=== PATIENT | female | born 1970 | race Caucasian/White ===

== ENCOUNTER → 2017-08-24 | Outpatient (CLI) | payer MEDICARE ==
--- NOTE | 2017-08-25 08:50 | MRI ---
EXAM DESCRIPTION: Lumbar Spine w/o Contrast : Magnetic Resonance Imaging. CLINICAL HISTORY: RADICULOPATHY COMPARISON: None. TECHNIQUE: Multiplanar, multiple standard sequences, non contrast MRI, lumbar spine. FINDINGS: L5-S1: Minimal disc space loss. Disc desiccation. Anterior bulging. Moderate disc space loss. Posterior midline 5 mm disc bulge also bulging to the left of midline encroaching on the left subarticular recess and abutting the descending left S1 nerve. Bilateral Modic type II endplate reactive changes. Disc spur complex encroaching on the bilateral foramina with moderate to severe narrowing. Posterior elements unremarkable. Heterogeneous marrow signal. Bright will circumscribed T1 and T2 signal in the L5 vertebra and S1 sacral segment. L4-5: Disc desiccation posterior broad-based bulge. Posterior Modic type I endplate reactive changes. Well-circumscribed bright T1 and T2 signal in the L4 vertebral body. Minimal bilateral facet arthrosis and ligament hypertrophy abutting the thecal sac. AP canal diameter 10 mm. Mild narrowing of the bilateral foramina. L3-4: Normal signal in the disc. No bulging. Minimal hypertrophy of the bilateral flavum ligaments and mild right facet arthrosis. Mild canal narrowing. Bilateral foramina are patent. Well-circumscribed bright T1 and T2 signal in the L3 vertebral body. L2-3 and L1-2 and T12-L1 discs with normal signal. Minimal bulging of the T12-L1 disc. No canal or foraminal stenosis at these levels. Conus terminates at L1. Posterior elements unremarkable. Small regions of well-circumscribed bright T1 and T2 signal L1 and L2 vertebral bodies. No scoliosis. Decreased lordosis above L3. Paravertebral soft tissues unremarkable. Heterogeneous marrow signal in multiple vertebral bodies and the posterior elements. Well-circumscribed bright T1 and T2 signal in the T11 vertebral body. Vertebral bodies are not compressed at any level. IMPRESSION: 1. Heterogeneous marrow signal with multiple hemangiomas in the vertebral bodies as described. Also in the sacrum. 2. Posterior midline L5-S1 disc herniation with endplate spur and trace retrolisthesis in the midline into the left of midline encroaching on the subarticular left lateral recess and the descending left S1 nerve. Correlate for radiculopathy. Bilateral neuroforaminal stenosis. Correlate for bilateral L5 radiculopathy. 2. Bulging desiccated L4-5 disc with borderline mild central canal stenosis. Electronically signed by: Seamus Waddell MD 08/25/2017 8:48 AM CDT
== END ==
LOC: MRI 08:15
PROVIDERS: ATTEND Physical Medicine & Rehabilitation
DX: M51.16 Intervertebral disc disorders with radiculopathy, lumbar region (principal); M79.1 Myalgia

== ENCOUNTER → 2018-01-18 | Outpatient (CLI) | payer MEDICARE | LOC: LAB.O 15:44 | PROVIDERS: ATTEND Neurological Surgery | DX: N39.0 Urinary tract infection, site not specified (principal) ==

== ENCOUNTER 2018-04-20 12:05 | Emergency (ER) | payer MEDICARE ==
[2018-04-20] MEDS ORDERED: ACTIVATED CHARCOAL PELLETS 25 GM BTTL ONE (12:08)
[2018-04-20] MEDS ORDERED: SODIUM CHLORIDE 0.9% 1000ML 1,000 ML IVS ONE (12:10)
[2018-04-20] MEDS ORDERED: NOREPINEPHRINE BITARTRATE 4 MG/4 ML VIAL IVPB ONE (12:54)
[2018-04-20] MEDS ORDERED: DEXTROSE 5% 250ML 250 ML ONE (12:55)
[2018-04-20] MEDS ORDERED: NOREPINEPHRINE BITARTRATE 4 MG in DEXTROSE 5% 250ML 250 ML IVPB SCH (13:00)
[2018-04-20] MEDS ORDERED: NALOXONE HCL INJ 0.4 MG/ML VIAL ONE (18:27)
[2018-04-20] MEDS ORDERED: NALOXONE HCL INJ 0.4 MG/ML VIAL IV ONE (18:43)
[2018-04-20] MEDS ORDERED: DEX 5% W/NACL 0.45% 1000ML 1,000 ML IVS PRN (20:17)
--- NOTE | 2018-04-20 20:19 | ED.PDOC ---
History of Present Illness - General Source: patient, EMS notes reviewed, family Exam Limitations: clinical condition - History of Present Illness Initial Comments: the patient is a 47-year-old female brought in by EMS secondary to intentional overdose attempt primarily with Flexeril. An unknown amount of 10 mg tablets was ingested but patient estimates at least 20 tablets. She also reports that she took a couple of her Xanax and 10-20 Seroquel. She took these about an hour prior to arrival here. By time of her arrival she is already very drowsy and really only able to stand her simple questions reliably. She is able to protect her airway and she is arousable to voice. Blood pressures are borderline in the 90s over 60s initially but do drop down into the 70s over 50s after about an hour requiring pressors in spite of IV fluids. Poison control was contacted. The patient was dosed with activated charcoal. Timing/Duration: 1-3 hours Severity: severe Improving Factors: nothing Worsening Factors: nothing <Godfrey Silver L - Last Filed: 04/21/18 06:21> <Abel Howell - Last Filed: 04/21/18 10:12> - General Chief Complaint: Drug or Alcohol Abuse Stated Complaint: Overdose Time Seen by Provider: 04/20/18 12:10 - History of Present Illness Allergies/Adverse Reactions: Allergies Codeine Allergy (Verified 04/20/18 13:26) Penicillins Allergy (Verified 04/20/18 13:26) Home Medications: Ambulatory Orders Alprazolam [Xanax] 1 mg PO QID PRN 02/26/15 Levothyroxine Sodium [Synthroid] 150 mcg PO DAILY 02/26/15 Abilify 11/09/15 Ciprofloxacin [Cipro] 500 mg PO BID #20 tab 11/09/15 Meloxicam [Mobic] 15 mg PO DAILY #30 tab 11/09/15 Trazodone HCl 11/09/15 Wellbutrin XL 11/09/15 Review of Systems - Review of Systems Constitutional: States: malaise EENTM: States: blurred vision Respiratory: States: no symptoms reported Cardiology: States: no symptoms reported Gastrointestinal/Abdominal: States: no symptoms reported Genitourinary: States: no symptoms reported Musculoskeletal: States: no symptoms reported Skin: States: no symptoms reported Neurological: States: depressed Endocrine: States: no symptoms reported <Godfrey Silver - Last Filed: 04/21/18 06:21> Past Medical History (General) - Patient Medical History Hx Seizures: No Hx Stroke: No Hx Dementia: No Hx Asthma: No Hx of COPD: No Hx Cardiac Disorders: No Hx Congestive Heart Failure: No Hx Pacemaker: No Hx Hypertension: No Hx Thyroid Disease: Yes Hx Diabetes: No Hx Gastroesophageal Reflux: Yes Hx Renal Disease: No Hx Cancer: No Hx of HIV: No Hx Hepatitis C: No Hx MRSA: No - Vaccination History Hx Tetanus, Diphtheria Vaccination: No Hx Influenza Vaccination: No Hx Pneumococcal Vaccination: No - Social History Hx Tobacco Use: No Hx Chewing Tobacco Use: No Hx Alcohol Use: No Hx Substance Use: No Hx Substance Use Treatment: No Hx Depression: Yes Hx Physical Abuse: No Hx Emotional Abuse: No Hx Suspected Abuse: No - Female History Patient : No <Godfrey Silver - Last Filed: 04/21/18 06:21> Family Medical History - Family History Mother Family History: No Known Living Status: Still Living <Godfrey Silver - Last Filed: 04/21/18 06:21> Physical Exam - Physical Exam General Appearance: Lethargic - very drowsy but arousable to voice. Eye Exam: bilateral normal - extraocular movements are intact however the patient wants to keep her eyes closed Ears, Nose, Throat: hearing grossly normal, normal ENT inspection Neck: full range of motion, supple Respiratory: lungs clear, normal breath sounds, no respiratory distress, no accessory muscle use Cardiovascular/Chest: normal peripheral pulses, regular rate, rhythm - borderline tachycardia, no edema Peripheral Pulses: radial,right: 2+, radial,left: 2+, dorsalis pedis,right: 2+, dorsalis pedis,left: 2+ Gastrointestinal/Abdominal: non tender - obese, soft Rectal Exam: deferred Back Exam: normal inspection, no vertebral tenderness Extremity: normal range of motion, non-tender, normal inspection, no pedal edema, normal capillary refill Neurologic: [employer] II-XII nml as tested, no motor/sensory deficits, other - the patient is drowsy and lethargic. She knows what hospital she is at and she kn ows why she is here. She does recognize her family members. She is able to protect her airway. She moves all extremities well. Skin Exam: normal color Comments: Vital Signs - 24 hr 04/20/18 04/20/18 04/20/18 12:05 13:05 13:20 Temperature 98.6 F Pulse Rate [ 122 H 97 H 100 H Apical] Respiratory 16 12 12 Rate Blood Pressure 114/66 114/73 86/70 [Left Arm] O2 Sat by Pulse 94 L 93 L 90 L Oximetry 04/20/18 04/20/18 04/20/18 13:35 13:50 14:10 Temperature Pulse Rate [ 95 H 91 H 95 H Apical] Respiratory 12 14 14 Rate Blood Pressure 101/84 111/85 128/87 [Left Arm] O2 Sat by Pulse 95 94 L 95 Oximetry 04/20/18 04/20/18 04/20/18 14:35 14:50 15:00 Temperature Pulse Rate [ 97 H 83 96 H Apical] Respiratory 14 14 14 Rate Blood Pressure 117/88 106/84 112/82 [Left Arm] O2 Sat by Pulse 93 L 96 96 Oximetry 04/20/18 04/20/18 04/20/18 16:30 17:30 18:00 Temperature 97.8 F Pulse Rate [ 90 90 87 Apical] Respiratory 16 16 16 Rate Blood Pressure 106/85 114/92 101/86 [Left Arm] O2 Sat by Pulse 98 97 98 Oximetry 04/20/18 19:00 Temperature Pulse Rate [ 94 H Apical] Respiratory 12 Rate Blood Pressure 126/90 [Left Arm] O2 Sat by Pulse 97 Oximetry <Godfrey Silver L - Last Filed: 04/21/18 06:21> Progress - Progress Progress: 04/20/18 20:23 the patient is a 47-year-old female who presented after an intentional overdose on her Flexeril. The patient has received a couple of liters of IV fluids and is now being maintained on low-flow D5 half NS. The patient did have significant hypotension for proximally 2 hours and did require Levophed. She is now off the pressors. The patient has been arousable to voice the whole time and has been able to protect her airway. The patient is still significantly too drowsy to be evaluated by psychiatry. I have been instructed by the internal medicine floor that they will not take an overdose attempt patient due to staffing issues, thus the patient will end up remaining here in the emergency room likely another 12-18 hours until she is in a mental state to talk with psychiatry. Repeat electrolytes and EKGs are reassuring. Telemetry is reassuring. Cosme catheter is in place. Continue monitoring overnight. Total ER time is going to be significantly extended due to constraints above. Critical care time spent in management of this patient with intentional overdose, including significant hypotension is 65 minutes to this point. 04/20/18 20:27 04/21/18 06:21 the patient is still drowsy but she is making sense this morning. [facility] will be contacted and a little while for their evaluation. Dr. Howell to assume care this morning. - Results/Orders Results/Orders: EKG initial shows sinus tachycardia at 112 bpm. QRS durations 84 ms. QTc interval is 477. Poor R-wave progression. Normal axis. No definitive ST segment or T-wave changes consistent with acute ischemia. Repeat EKG 6 hours later shows normal sinus rhythm at 95 bpm. Normal axis. Continued poor R-wave progression. No ST segment or T-wave changes consistent with ischemia. Normal QT interval at 472. QRS complex is still 84 ms Laboratory Tests 04/20/18 04/20/18 04/20/18 12:32 12:32 12:32 WBC 6.7 RBC 4.07 L Hgb 11.1 L Hct 34.2 L MCV 84.1 MCH 27.2 MCHC 32.5 L RDW 14.7 H Plt Count 362 MPV 7.7 Absolute Neuts (auto) 3.30 Absolute Lymphs (auto) 2.50 Absolute Monos (auto) 0.70 Absolute Eos (auto) 0.20 Absolute Basos (auto) 0.10 Neutrophils % 48.9 Lymphocytes % 37.0 Monocytes % 9.7 H Eosinophils % 3.6 Basophils % 0.8 PT 9.4 INR 0.94 PTT (SP) 23.7 Sodium 138 Potassium 3.5 L Chloride 109 Carbon Dioxide 22 Anion Gap 10.5 L BUN 14 Creatinine 0.53 L BUN/Creatinine Ratio 26.4 H Random Glucose 114 H Serum Osmolality 277.0 Lactic Acid Calcium 8.4 Magnesium 1.9 Total Bilirubin 0.3 AST 22 ALT 26 Alkaline Phosphatase 48 Creatine Kinase 162 H CK-MB (CK-2) 2.5 CK-MB (CK-2) % Not Reportable Troponin I < 0.02 Serum Total Protein 6.4 Albumin 3.3 Globulin 3.1 Albumin/Globulin Ratio 1.1 Serum HCG, Qual Urine Color Urine Appearance Urine pH Ur Specific [place] Urine Protein Urine Glucose (UA) Urine Ketones Urine Blood Urine Nitrite Urine Bilirubin Urine Urobilinogen Ur Leukocyte Esterase Urine RBC Urine WBC Ur Epithelial Cells Urine Bacteria Salicylates Urine Opiates Screen Acetaminophen Urine Barbiturates Ur Phencyclidine Scrn U Amphetamin/Meth Scrn U Benzodiazepines Scrn U Cocaine Metab Screen U Cannabinoids Screen Ethyl Alcohol 04/20/18 04/20/18 04/20/18 12:32 12:32 12:32 WBC RBC Hgb Hct MCV MCH MCHC RDW Plt Count MPV Absolute Neuts (auto) Absolute Lymphs (auto) Absolute Monos (auto) Absolute Eos (auto) Absolute Basos (auto) Neutrophils % Lymphocytes % Monocytes % Eosinophils % Basophils % PT INR PTT (SP) Sodium Potassium Chloride Carbon Dioxide Anion Gap BUN Creatinine BUN/Creatinine Ratio Random Glucose Serum Osmolality Lactic Acid 1.3 Calcium Magnesium Total Bilirubin AST ALT Alkaline Phosphatase Creatine Kinase CK-MB (CK-2) CK-MB (CK-2) % Troponin I Serum Total Protein Albumin Globulin Albumin/Globulin Ratio Serum HCG, Qual Negative Urine Color Urine Appearance Urine pH Ur Specific [place] Urine Protein Urine Glucose (UA) Urine Ketones Urine Blood Urine Nitrite Urine Bilirubin Urine Urobilinogen Ur Leukocyte Esterase Urine RBC Urine WBC Ur Epithelial Cells Urine Bacteria Salicylates Urine Opiates Screen Acetaminophen Urine Barbiturates Ur Phencyclidine Scrn U Amphetamin/Meth Scrn U Benzodiazepines Scrn U Cocaine Metab Screen U Cannabinoids Screen Ethyl Alcohol 0.00 04/20/18 04/20/18 04/20/18 12:32 15:57 16:00 WBC RBC Hgb Hct MCV MCH MCHC RDW Plt Count MPV Absolute Neuts (auto) Absolute Lymphs (auto) Absolute Monos (auto) Absolute Eos (auto) Absolute Basos (auto) Neutrophils % Lymphocytes % Monocytes % Eosinophils % Basophils % PT INR PTT (SP) Sodium Potassium Chloride Carbon Dioxide Anion Gap BUN Creatinine BUN/Creatinine Ratio Random Glucose Serum Osmolality Lactic Acid Calcium Magnesium Total Bilirubin AST ALT Alkaline Phosphatase Creatine Kinase CK-MB (CK-2) CK-MB (CK-2) % Troponin I Serum Total Protein Albumin Globulin Albumin/Globulin Ratio Serum HCG, Qual Urine Color Yellow Urine Appearance Sl cloudy Urine pH 6.0 Ur Specific [place] 1.025 Urine Protein Negative Urine Glucose (UA) Negative Urine Ketones Negative Urine Blood Negative Urine Nitrite Positive H Urine Bilirubin Negative Urine Urobilinogen 0.2 Ur Leukocyte Esterase Trace H Urine RBC 0 Urine WBC 0-1 Ur Epithelial Cells 0 Urine Bacteria 4+ H Salicylates Urine Opiates Screen Positive H Acetaminophen < 10.0 L Urine Barbiturates Negative Ur Phencyclidine Scrn Negative U Amphetamin/Meth Scrn Positive H U Benzodiazepines Scrn Positive H U Cocaine Metab Screen Negative U Cannabinoids Screen Negative Ethyl Alcohol 04/20/18 04/20/18 18:22 18:22 WBC RBC Hgb Hct MCV MCH MCHC RDW Plt Count MPV Absolute Neuts (auto) Absolute Lymphs (auto) Absolute Monos (auto) Absolute Eos (auto) Absolute Basos (auto) Neutrophils % Lymphocytes % Monocytes % Eosinophils % Basophils % PT INR PTT (SP) Sodium 139 Potassium 3.9 Chloride 112 H Carbon Dioxide 23 Anion Gap 7.9 L BUN 11 Creatinine 0.57 L BUN/Creatinine Ratio 19.3 Random Glucose 102 Serum Osmolality 277.1 Lactic Acid 1.5 Calcium 8.1 L Magnesium Total Bilirubin 0.4 AST 23 ALT 26 Alkaline Phosphatase 47 Creatine Kinase CK-MB (CK-2) CK-MB (CK-2) % Troponin I Serum Total Protein 6.0 L Albumin 3.1 L Globulin 2.9 Albumin/Globulin Ratio 1.1 Serum HCG, Qual Urine Color Urine Appearance Urine pH Ur Specific [place] Urine Protein Urine Glucose (UA) Urine Ketones Urine Blood Urine Nitrite Urine Bilirubin Urine Urobilinogen Ur Leukocyte Esterase Urine RBC Urine WBC Ur Epithelial Cells Urine Bacteria Salicylates Urine Opiates Screen Acetaminophen Urine Barbiturates Ur Phencyclidine Scrn U Amphetamin/Meth Scrn U Benzodiazepines Scrn U Cocaine Metab Screen U Cannabinoids Screen Ethyl Alcohol <Godfrey Silver L - Last Filed: 04/21/18 06:21> - Progress Progress: 04/21/18 10:02 [facility] evaluation done patient talked with [facility] stating daughter just got out of group home then went to her house and daughter wants to get her medications had argument about it then she had onset of exacerbation of her chronic back pains she took multiple doses of seroquel and flexeril to eased it but saying did not take alprazolam.Also stated did not try to harm herself.[facility] recommended [facility] but patient doesnot want to go to the facility ;She prefers to go home with her uncle also here talked to [facility] and uncle will take close watch during weekend as well as her medications that she takes the right amount and dose.Has follow up with [facility] next week.She has stable vital signs was more alert and able to talk to [facility] personnel 04/21/18 10:09 <Abel Howell - Last Filed: 04/21/18 10:12> Departure <Godfrey Silver L - Last Filed: 04/21/18 06:21> - Departure Time of Disposition: 10:10 <Abel Howell - Last Filed: 04/21/18 10:12> - Departure Clinical Impression: Intentional overdose of drug in tablet form Hypotension Qualifiers: Hypotension type: hypotension due to drug Qualified Code(s): I95.2 - Hypotension due to drugs Disposition: Discharge to Home or Self Care Departure Forms: ED Discharge - Pt. Copy, Patient Portal Self Enrollment Instructions: DI for Drug Overdose in Adults Home Medications: Ambulatory Orders Alprazolam [Xanax] 1 mg PO QID PRN 02/26/15 Levothyroxine Sodium [Synthroid] 150 mcg PO DAILY 02/26/15 Abilify 11/09/15 Ciprofloxacin [Cipro] 500 mg PO BID #20 tab 11/09/15 Meloxicam [Mobic] 15 mg PO DAILY #30 tab 11/09/15 Trazodone HCl 11/09/15 Wellbutrin XL 11/09/15 Additional Instructions: Keep appointment with [facility] as scheduled;Return to ER as needed
[2018-04-21 06:05] VITALS: TEMP 98.1
[2018-04-21 10:38] VITALS: BP 117/75; O2SAT 99
== END 2018-04-21 10:37 | disposition home or self-care (01) ==
LOC: ER 12:05
DX: T48.1X2A Poisoning by skeletal muscle relaxants [neuromuscular blocking agents], intentional self-harm, initial encounter (principal); T42.4X2A Poisoning by benzodiazepines, intentional self-harm, initial encounter; T43.592A Poisoning by other antipsychotics and neuroleptics, intentional self-harm, initial encounter; I95.2 Hypotension due to drugs; R00.0 Tachycardia, unspecified; G89.29 Other chronic pain; M54.9 Dorsalgia, unspecified; E07.9 Disorder of thyroid, unspecified; K21.9 Gastro-esophageal reflux disease without esophagitis; Z79.899 Other long term (current) drug therapy; Z88.5 Allergy status to narcotic agent; Z88.0 Allergy status to penicillin
CPT/HCPCS: 36415; 80053; 80307; 80320; 80329; 81001; 82550; 82553; 83605; 83735; 84484; 84703; 85025; 85610; 85730; 87077; 87086; 87186; 93005; J2310; J7030; J7060; J7799

== ENCOUNTER 2018-06-14 18:28 | Emergency (ER) | payer MEDICARE ==
[2018-06-14 19:25] VITALS: TEMP 97.6
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
[2018-06-14 21:21] VITALS: BP 113/79; O2SAT 98
== END 2018-06-14 21:20 | disposition home or self-care (01) ==
LOC: ER 18:28
DX: S06.0X0A Concussion without loss of consciousness, initial encounter (principal); S00.03XA Contusion of scalp, initial encounter; S39.012A Strain of muscle, fascia and tendon of lower back, initial encounter; G89.29 Other chronic pain; F32.9 Major depressive disorder, single episode, unspecified; E07.9 Disorder of thyroid, unspecified; K21.9 Gastro-esophageal reflux disease without esophagitis; Z79.899 Other long term (current) drug therapy; Z88.5 Allergy status to narcotic agent; Z88.0 Allergy status to penicillin; Z98.890 Other specified postprocedural states; V86.99XA Unspecified occupant of other special all-terrain or other off-road motor vehicle injured in nontraffic accident, initial encounter; Y92.9 Unspecified place or not applicable

== ENCOUNTER 2018-06-19 17:22 | Emergency (ER) | payer MEDICARE ==
[2018-06-19] MEDS ORDERED: PROMETHAZINE HCL INJ 25 MG/ML VIAL IM ONE (17:46)
[2018-06-19] MEDS ORDERED: ACETAMINOPHEN-CAFF-BUTALBITAL 1 EA TAB PO PRN (17:46)
--- NOTE | 2018-06-19 18:11 | CT ---
EXAM DESCRIPTION: Head CLINICAL HISTORY: SEVERE HEADACHE COMPARISON: 14 June 2018 TECHNIQUE: Non contrast cranial CT.This exam was performed according to our departmental dose-optimization program, which includes automated exposure control, adjustment of the mA and/or kV according to patient size and/or use of iterative reconstruction technique. FINDINGS: The paranasal sinuses and orbits as imaged are normal. No intracranial hemorrhage is observed. No mass lesions or mass effect are observed. The ventricles and cisternal spaces are within range of normal. A large right scalp hematoma is observed. It has enlarged since the previous exam. No skull fracturing is detected. IMPRESSION: A large right-sided scalp hematomas observed and has increased in size since the previous exam. No intracranial pathology is detected. Electronically signed by: Kevin Gonzalez MD 06/19/2018 6:08 PM CDT
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
[2018-06-19] MEDS ORDERED: KETOROLAC TROMETHAMINE INJ 60 MG/2 ML VIAL IM ONE (18:14)
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
[2018-06-19 18:47] VITALS: BP 133/97; TEMP 98.6; O2SAT 98
== END 2018-06-19 18:46 | disposition home or self-care (01) ==
LOC: ER 17:22
DX: G44.309 Post-traumatic headache, unspecified, not intractable (principal); F07.81 Postconcussional syndrome; S05.11XA Contusion of eyeball and orbital tissues, right eye, initial encounter; S05.12XA Contusion of eyeball and orbital tissues, left eye, initial encounter; E07.9 Disorder of thyroid, unspecified; K21.9 Gastro-esophageal reflux disease without esophagitis; F32.9 Major depressive disorder, single episode, unspecified; Z79.899 Other long term (current) drug therapy; Z88.5 Allergy status to narcotic agent; Z88.0 Allergy status to penicillin; V47.5XXA Car driver injured in collision with fixed or stationary object in traffic accident, initial encounter; Y92.410 Unspecified street and highway as the place of occurrence of the external cause
CPT/HCPCS: 70450; 70486; J1885; J2550